=== PATIENT | male | born 1995 | race Caucasian/White ===

== ENCOUNTER 2019-08-16 11:44 | Emergency (ER) | payer SELFPAY ==
[2019-08-16 13:13] VITALS: BP 139/71
--- NOTE | 2019-08-16 13:14 | UC ---
Respiratory Complaint HPI - HPI Summary HPI Summary: 23yo male presenting with persistent nonproductive cough x10 days. Patient states it began with URI symptoms, fever, chills, bodyaches, which have all since resolved except for coughing. States feeling "chest congestion" but denies sob and wheezing. Denies chest pain. Denies n/v. Denies any fevers or chills recently. Denies asthma. Smokes marijuana every other day. - History of Current Complaint Stated Complaint: FLU LIKE SYMP Hx Obtained From: Patient Pain Intensity: 0 - Allergies/Home Medications Allergies/Adverse Reactions: Allergies Allergy/AdvReac Type Severity Reaction Status Date / Time No Known Allergies Allergy Verified 08/16/19 13:10 Home Medications: Home Medications Albuterol HFA INHALER* [Ventolin HFA Inhaler*] 1 - 2 puff INH Q6H PRN #1 mdi [Rx] Benzonatate CAP* [Tessalon 100 MG CAP*] 100 mg PO TID PRN #21 cap 08/16/19 [Rx] PMH/Surg Hx/FS Hx/Imm Hx Previously Healthy: Yes - Surgical History Surgical History: None - Family History Known Family History: Positive: Non-Contributory - Social History Alcohol Use: Occasionally Substance Use Type: Marijuana Substance Use Comment - Amount & Last Used: Every other day Smoking Status (MU): Never Smoked Tobacco Review of Systems All Other Systems Reviewed And Are Negative: Yes Constitutional: Positive: Negative ENT: Positive: Negative Respiratory: Positive: Cough - nonproductive. Negative: Shortness Of Breath Cardiovascular: Positive: Negative Gastrointestinal: Positive: Negative. Negative: Vomiting, Nausea Musculoskeletal: Negative: Myalgia Neurological/Mental Status: Positive: Negative Physical Exam - Summary Physical Exam Summary: Vital Signs Reviewed: Yes A+Ox3, no distress, well-appearing Eyes: Conjunctiva Clear ENT: Hearing grossly normal, TM x 2 clear, moist, uvula midline, no exudate, no erythema Neck: Positive: Supple Respiratory: Positive: No respiratory distress, No accessory muscle use +faint diffuse inspiratory wheezing, no rhonchi/rales Cardiovascular: RRR nl s1, s2 no m/r Musculoskeletal Exam: LING x 4 without difficulty Neurological: Positive: Alert Psychological: Positive: age appropriate behavior Skin: Positive: no rash, no ecchymosis Vital Signs: Initial Vital Signs Temp 98.3 F 08/16/19 13:09 Pulse 58 08/16/19 13:09 Resp 16 08/16/19 13:09 BP 139/71 08/16/19 13:09 Pulse Ox 100 08/16/19 13:09 Respiratory Course/Dx - Course Course Of Treatment: Discussed viral bronchitis with patient and provided prescription for albuterol inhaler and tesslon perles for symptom management. VS normal, afebrile and 100% o2 sat. Instructed to refrain from smoking while symptoms present. Educated on s /s of worsening respiratory illness and instructed to go to ED if any red flags occur. Patient voiced understanding and agreed with treatment plan. - Differential Dx/Diagnosis Differential Diagnosis/HQI/PQRI: Asthma, Bronchitis, Influenza, Lower Resp Infection Provider Diagnosis: Acute bronchitis with bronchospasm Discharge ED - Sign-Out/Discharge Documenting (check all that apply): Patient Departure All imaging exams completed and their final reports reviewed: No Studies - Discharge Plan Condition: Stable Disposition: HOME Prescriptions: Albuterol HFA INHALER* [Ventolin HFA Inhaler*] 1 - 2 puff INH Q6H PRN #1 mdi PRN Reason: Sob/Wheezing Benzonatate CAP* [Tessalon 100 MG CAP*] 100 mg PO TID PRN #21 cap PRN Reason: Cough Patient Education Materials: Acute Bronchitis (ED) Referrals: [facility] [Outside] - If Needed Additional Instructions: Use the inhaler as needed for wheezing/chest tightness. Take the tesslon perles as directed for cough relief. You may take an over the counter decongestant. Increase your fluid intake. Follow up with your primary care doctor if your symptoms do not improve within 7 -10 days. Go to the emergency room if you experience any new or worsening symptoms. - Billing Disposition and Condition Condition: STABLE Disposition: Home - Attestation Statements Provider Attestation: This patient was not seen by me. I was available for consult. Chart reviewed. [email or web address]
== END 2019-08-16 13:36 | disposition home or self-care (01) ==
LOC: UCCORT 11:44
DX: J20.9 Acute bronchitis, unspecified (principal)
CPT/HCPCS: 99202; G0463